=== PATIENT | female | born 1965 | race Caucasian/White ===

== ENCOUNTER 2016-06-14 15:13 | Emergency (ER) | payer MEDICAID ==
[2016-03-08 14:43] VITALS: BMI 21.9
[~2016-06-14 15:13] MED LIST: AMBIEN10 MG PO; ASPIRIN 81 MG E81 MG PO; IMDUR30 MG PO; NEURONTIN600 MG PO; NORCO 10/325 TA1 TA1 PO; NORCO 7.5/325 T1 TA1 PO; VALIUM10 MG; VALIUM10 MG OR; XANAX1 MG PO; ZOLOFT100 MG PO
== END 2016-06-14 18:35 | disposition home or self-care (01) ==
LOC: D.ER 15:13
DX: S16.1XXA Strain of muscle, fascia and tendon at neck level, initial encounter (principal); W10.9XXA Fall (on) (from) unspecified stairs and steps, initial encounter; Y93.89 Activity, other specified; Y92.019 Unspecified place in single-family (private) house as the place of occurrence of the external cause; M62.838 Other muscle spasm; F17.200 Nicotine dependence, unspecified, uncomplicated; I10 Essential (primary) hypertension; E87.6 Hypokalemia; E11.9 Type 2 diabetes mellitus without complications

== ENCOUNTER 2016-06-18 12:43 | Emergency (ER) | payer MEDICAID ==
[2016-03-08 14:43] VITALS: BMI 21.9
== END 2016-06-18 16:30 | disposition home or self-care (01) ==
LOC: D.ER 12:43
DX: M54.2 Cervicalgia (principal); I10 Essential (primary) hypertension; E87.6 Hypokalemia; W10.9XXA Fall (on) (from) unspecified stairs and steps, initial encounter; Y93.89 Activity, other specified; Y92.89 Other specified places as the place of occurrence of the external cause

== ENCOUNTER 2016-07-04 19:42 | Emergency (ER) | payer MEDICAID ==
[2016-03-08 14:43] VITALS: BMI 21.9
== END 2016-07-04 20:55 | disposition home or self-care (01) ==
LOC: D.ER 19:42
DX: S16.1XXA Strain of muscle, fascia and tendon at neck level, initial encounter (principal); W51.XXXA Accidental striking against or bumped into by another person, initial encounter; Y93.89 Activity, other specified; Y92.89 Other specified places as the place of occurrence of the external cause; M62.838 Other muscle spasm; J06.9 Acute upper respiratory infection, unspecified; I10 Essential (primary) hypertension; E87.6 Hypokalemia; F17.200 Nicotine dependence, unspecified, uncomplicated

== ENCOUNTER 2016-07-16 14:10 | Emergency (ER) | payer MEDICAID ==
[2016-03-08 14:43] VITALS: BMI 21.9
== END 2016-07-16 19:25 | disposition home or self-care (01) ==
LOC: D.ER 14:10
DX: S16.1XXA Strain of muscle, fascia and tendon at neck level, initial encounter (principal); W10.9XXA Fall (on) (from) unspecified stairs and steps, initial encounter; Y93.89 Activity, other specified; Y92.019 Unspecified place in single-family (private) house as the place of occurrence of the external cause; M62.838 Other muscle spasm; I10 Essential (primary) hypertension; E87.6 Hypokalemia

== ENCOUNTER 2016-08-05 22:20 | Emergency (ER) | payer MEDICAID ==
[2016-03-08 14:43] VITALS: BMI 21.9
== END 2016-08-05 23:05 | disposition home or self-care (01) ==
LOC: D.ER 22:20
DX: M25.562 Pain in left knee (principal); M25.561 Pain in right knee; W01.0XXA Fall on same level from slipping, tripping and stumbling without subsequent striking against object, initial encounter; Y93.89 Activity, other specified; Y92.010 Kitchen of single-family (private) house as the place of occurrence of the external cause; I10 Essential (primary) hypertension; E87.6 Hypokalemia

== ENCOUNTER 2016-09-15 16:06 | Emergency (ER) | payer MEDICAID ==
[2016-03-08 14:43] VITALS: BMI 21.9
== END 2016-09-15 19:30 | disposition left against medical advice (07) ==
LOC: D.ER 16:06
DX: R51 Headache (principal)

== ENCOUNTER 2016-09-17 14:23 | Emergency (ER) | payer MEDICAID ==
[2016-03-08 14:43] VITALS: BMI 21.9
== END 2016-09-17 15:40 | disposition home or self-care (01) ==
LOC: D.ER 14:23
DX: R51 Headache (principal); I10 Essential (primary) hypertension; I25.10 Atherosclerotic heart disease of native coronary artery without angina pectoris; E87.6 Hypokalemia; F17.200 Nicotine dependence, unspecified, uncomplicated

== ENCOUNTER 2016-09-19 15:26 | Emergency (ER) | payer MEDICAID ==
[2016-03-08 14:43] VITALS: BMI 21.9
== END 2016-09-19 18:40 | disposition home or self-care (01) ==
LOC: D.ER 15:26
DX: S80.02XA Contusion of left knee, initial encounter (principal); W19.XXXA Unspecified fall, initial encounter; Y93.89 Activity, other specified; Y92.89 Other specified places as the place of occurrence of the external cause; S80.01XA Contusion of right knee, initial encounter; I10 Essential (primary) hypertension; E87.6 Hypokalemia; F17.200 Nicotine dependence, unspecified, uncomplicated

== ENCOUNTER 2016-09-28 14:50 | Emergency (ER) | payer MEDICAID ==
[2016-03-08 14:43] VITALS: BMI 21.9
[2016-09-28 16:45] LABS: BASOPHILS 0.2 % (0-2); EOSINOPHILS 1.2 % (0-7); HEMATOCRIT 46.7 % (36.0-48.0); HEMOGLOBIN 15.4 g/dL (12-16); IMMATURE GRANULOCYTES 0.1 % (0-5); LYMPHOCYTES 23.4 % (15-50); MCH 30.3 pg (26.0-34.0); MCV 91.7 fL (80.0-100.0); MEAN PLATELET VOLUME 9.3 fL (7.4-10.4); NEUTROPHILS 70.1 % (40-80); PLATELET COUNT 242 10x3/uL (130-400); RBC 5.09 10x6/uL (4.00-5.40); RDW 13.5 % (11.5-14.5); WBC 8.4 10x3/uL (4.8-10.8)
[2016-09-28 16:59] LABS: ALBUMIN 3.1 g/dL (3.4-5.0); ALKALINE PHOSPHATASE 104 U/L (46-116); ALT (SGPT) 25 U/L (10-68); CALC OSMOLALITY 281 mosm/kg (275-300); CALCIUM 9.2 mg/dL (8.5-10.1); CARBON DIOXIDE 26.2 mmol/L (21.0-32.0); CHLORIDE - SERUM 106 mmol/L (98-107); CREATININE - SERUM 0.8 mg/dL (0.6-1.3); GLUCOSE 114 mg/dL (74-106); POTASSIUM - SERUM 4.2 mmol/L (3.5-5.1); PROTEIN - SERUM 6.6 g/dL (6.4-8.2); SODIUM 140 mmol/L (136-145); UREA NITROGEN 19 mg/dL (7-18); eGFR NON AFRICAN AMERICAN 80 mL/min (90-120)
== END 2016-09-28 18:32 | disposition home or self-care (01) ==
LOC: D.ER 14:50
PROVIDERS: Emergency Medicine
DX: R11.2 Nausea with vomiting, unspecified (principal); H81.393 Other peripheral vertigo, bilateral; I10 Essential (primary) hypertension

== ENCOUNTER 2016-10-04 19:21 | Emergency (ER) | payer MEDICAID ==
[2016-03-08 14:43] VITALS: BMI 21.9
[2016-10-04 20:28] LABS: BASOPHILS 0.3 % (0-2); EOSINOPHILS 3.1 % (0-7); HEMATOCRIT 43.1 % (36.0-48.0); IMMATURE GRANULOCYTES 0.2 % (0-5); LYMPHOCYTES 42.8 % (15-50); MCHC 32.5 g/dL (31.0-37.0); MCV 92.3 fL (80.0-100.0); MEAN PLATELET VOLUME 9.7 fL (7.4-10.4); MONOCYTES 6.2 % (2-11); NEUTROPHILS 47.4 % (40-80); PLATELET COUNT 202 10x3/uL (130-400); RBC 4.67 10x6/uL (4.00-5.40); RDW 13.6 % (11.5-14.5); WBC 5.8 10x3/uL (4.8-10.8)
[2016-10-04 20:52] LABS: ALBUMIN 2.9 g/dL (3.4-5.0); ANION GAP 12.8 mmol/L (8-16); BILIRUBIN - TOTAL 0.2 mg/dL (0.2-1.3); CALCIUM 9.1 mg/dL (8.5-10.1); CARBON DIOXIDE 24.7 mmol/L (21.0-32.0); CREATININE - SERUM 0.9 mg/dL (0.6-1.3); POTASSIUM - SERUM 4.5 mmol/L (3.5-5.1); PROTEIN - SERUM 5.9 g/dL (6.4-8.2)
== END 2016-10-04 21:24 | disposition home or self-care (01) ==
LOC: D.ER 19:21
PROVIDERS: Family Medicine
DX: H81.10 Benign paroxysmal vertigo, unspecified ear (principal); S93.402A Sprain of unspecified ligament of left ankle, initial encounter; X50.1XXA Overexertion from prolonged static or awkward postures, initial encounter

== ENCOUNTER 2016-11-04 12:53 | Emergency (ER) | payer MEDICAID ==
[2016-03-08 14:43] VITALS: BMI 21.9
== END 2016-11-04 15:14 | disposition home or self-care (01) ==
LOC: D.ER 12:53
DX: R51 Headache (principal); I10 Essential (primary) hypertension; F17.200 Nicotine dependence, unspecified, uncomplicated

== ENCOUNTER 2017-05-12 17:01 | Emergency (ER) | payer MEDICAID ==
[2016-03-08 14:43] VITALS: BMI 21.9
[2017-05-12 17:30] LABS: BASOPHILS 0.2 % (0-2); EOSINOPHILS 1.5 % (0-7); HEMATOCRIT 40.5 % (36.0-48.0); HEMOGLOBIN 13.8 g/dL (12-16); IMMATURE GRANULOCYTES 0.2 % (0-5); LYMPHOCYTES 16.9 % (15-50); MCH 30.2 pg (26.0-34.0); MCHC 34.1 g/dL (31.0-37.0); MCV 88.6 fL (80.0-100.0); MONOCYTES 5.1 % (2-11); NEUTROPHILS 76.1 % (40-80); RBC 4.57 10x6/uL (4.00-5.40); RDW 12.5 % (11.5-14.5); WBC 10.3 10x3/uL (4.8-10.8)
[2017-05-12 17:47] LABS: ALBUMIN 3.1 g/dL (3.4-5.0); ANION GAP 16.7 mmol/L (8-16); BILIRUBIN - TOTAL 0.15 mg/dL (0.2-1.3); CALCIUM 9.7 mg/dL (8.5-10.1); CREATININE - SERUM 1.2 mg/dL (0.6-1.3); POTASSIUM - SERUM 4.7 mmol/L (3.5-5.1); PROTEIN - SERUM 6.2 g/dL (6.4-8.2)
[2017-05-12 17:52] LABS: PLATELET COUNT 249 10x3/uL (130-400)
[2017-05-12 18:19] LABS: AMYLASE - SERUM 47 U/L (25-115); LIPASE 217 U/L (73-393)
== END 2017-05-12 22:55 | disposition home or self-care (01) ==
LOC: D.ER 17:01
PROVIDERS: Emergency Medicine; Nurse Practitioner Family
DX: N10 Acute pyelonephritis (principal); N23 Unspecified renal colic; N20.1 Calculus of ureter; I10 Essential (primary) hypertension; F17.200 Nicotine dependence, unspecified, uncomplicated

== ENCOUNTER 2017-05-14 14:12 | Emergency (ER) | payer MEDICAID ==
[2016-03-08 14:43] VITALS: BMI 21.9
[2017-05-14 14:46] LABS: BASOPHILS 0.1 % (0-2); EOSINOPHILS 0.8 % (0-7); HEMATOCRIT 32.7 % (36.0-48.0); HEMOGLOBIN 11.4 g/dL (12-16); IMMATURE GRANULOCYTES 0.3 % (0-5); LYMPHOCYTES 7.5 % (15-50); MCH 30.3 pg (26.0-34.0); MCHC 34.9 g/dL (31.0-37.0); MEAN PLATELET VOLUME 9.3 fL (7.4-10.4); NEUTROPHILS 86.3 % (40-80); PLATELET COUNT 113 10x3/uL (130-400); RBC 3.76 10x6/uL (4.00-5.40); RDW 13.4 % (11.5-14.5)
[2017-05-14 15:01] LABS: ANION GAP 20.7 mmol/L (8-16); BILIRUBIN - TOTAL 0.27 mg/dL (0.2-1.3); CARBON DIOXIDE 17.2 mmol/L (21.0-32.0); POTASSIUM - SERUM 4.9 mmol/L (3.5-5.1); PROTEIN - SERUM 5.8 g/dL (6.4-8.2)
[2017-05-14 15:10] LABS: ALBUMIN 2.3 g/dL (3.4-5.0); CREATININE - SERUM 7.5 mg/dL (0.6-1.3)
== END 2017-05-14 20:06 | disposition short-term general hospital (02) ==
LOC: D.ER 14:12
PROVIDERS: Nurse Practitioner Family
DX: N13.9 Obstructive and reflux uropathy, unspecified (principal); N13.30 Unspecified hydronephrosis; N39.0 Urinary tract infection, site not specified; R10.9 Unspecified abdominal pain; I10 Essential (primary) hypertension; F17.200 Nicotine dependence, unspecified, uncomplicated

== ENCOUNTER 2017-05-28 10:05 | Emergency (ER) | payer MEDICAID ==
[2016-03-08 14:43] VITALS: BMI 21.9
[2017-05-28 10:34] LABS: BASOPHILS 0.2 % (0-2); EOSINOPHILS 1.1 % (0-7); HEMATOCRIT 37.8 % (36.0-48.0); HEMOGLOBIN 12.5 g/dL (12-16); IMMATURE GRANULOCYTES 0.2 % (0-5); LYMPHOCYTES 20.2 % (15-50); MCH 29.4 pg (26.0-34.0); MCHC 33.1 g/dL (31.0-37.0); MCV 88.9 fL (80.0-100.0); MEAN PLATELET VOLUME 8.5 fL (7.4-10.4); MONOCYTES 6.8 % (2-11); NEUTROPHILS 71.5 % (40-80); PLATELET COUNT 522 10x3/uL (130-400); RBC 4.25 10x6/uL (4.00-5.40); RDW 13.2 % (11.5-14.5); WBC 9.2 10x3/uL (4.8-10.8)
[2017-05-28 10:45] LABS: APPEARANCE HAZY (CLEAR); BILIRUBIN NEGATIVE (NEGATIVE); COLOR YELLOW (YELLOW); GLUCOSE NEGATIVE (NEGATIVE); KETONE NEGATIVE (NEGATIVE); NITRITE NEGATIVE (NEGATIVE); PH 5.5 (5.0-6.0); PROTEIN TRACE mg/dL (NEGATIVE); UROBILINOGEN NORMAL (NORMAL)
[2017-05-28 10:50] LABS: BACTERIA MODERATE /hpf (NONE SEEN); EPITHELIAL CELLS OCC /hpf (0-5); RED CELLS - URINE 0-5 /hpf (0-5); WHITE CELLS - URINE 25-50 /hpf (0-5)
[2017-05-28 10:51] LABS: ALBUMIN 3.3 g/dL (3.4-5.0); ANION GAP 14.9 mmol/L (8-16); BILIRUBIN - TOTAL 0.22 mg/dL (0.2-1.3); CALCIUM 9.3 mg/dL (8.5-10.1); CARBON DIOXIDE 23.4 mmol/L (21.0-32.0); CREATININE - SERUM 0.9 mg/dL (0.6-1.3); POTASSIUM - SERUM 4.3 mmol/L (3.5-5.1); PROTEIN - SERUM 7.7 g/dL (6.4-8.2)
== END 2017-05-28 11:12 | disposition home or self-care (01) ==
LOC: D.ER 10:05
PROVIDERS: Emergency Medicine
DX: N23 Unspecified renal colic (principal); N20.1 Calculus of ureter; I10 Essential (primary) hypertension; F17.200 Nicotine dependence, unspecified, uncomplicated

== ENCOUNTER 2017-06-01 17:16 | Emergency (ER) | payer MEDICAID ==
[2016-03-08 14:43] VITALS: BMI 21.9
[2017-06-01 19:28] LABS: BASOPHILS 0.2 % (0-2); EOSINOPHILS 1.1 % (0-7); HEMATOCRIT 37.3 % (36.0-48.0); HEMOGLOBIN 12.2 g/dL (12-16); IMMATURE GRANULOCYTES 0.2 % (0-5); LYMPHOCYTES 24.9 % (15-50); MCH 29.5 pg (26.0-34.0); MCHC 32.7 g/dL (31.0-37.0); MCV 90.3 fL (80.0-100.0); MEAN PLATELET VOLUME 8.6 fL (7.4-10.4); MONOCYTES 8.1 % (2-11); NEUTROPHILS 65.5 % (40-80); RBC 4.13 10x6/uL (4.00-5.40); RDW 13.1 % (11.5-14.5); WBC 9.4 10x3/uL (4.8-10.8)
[2017-06-01 19:32] LABS: PLATELET COUNT 394 10x3/uL (130-400)
[2017-06-01 19:44] LABS: ALBUMIN 3.5 g/dL (3.4-5.0); ANION GAP 15.1 mmol/L (8-16); BILIRUBIN - TOTAL 0.17 mg/dL (0.2-1.3); CALCIUM 9.6 mg/dL (8.5-10.1); CARBON DIOXIDE 25.3 mmol/L (21.0-32.0); CREATININE - SERUM 0.9 mg/dL (0.6-1.3); POTASSIUM - SERUM 4.4 mmol/L (3.5-5.1); PROTEIN - SERUM 7.5 g/dL (6.4-8.2)
[2017-06-02 00:09] LABS: APPEARANCE HAZY (CLEAR); BILIRUBIN NEGATIVE (NEGATIVE); COLOR YELLOW (YELLOW); EPITHELIAL CELLS RARE /hpf (0-5); GLUCOSE NEGATIVE (NEGATIVE); KETONE NEGATIVE (NEGATIVE); NITRITE NEGATIVE (NEGATIVE); PROTEIN TRACE mg/dL (NEGATIVE); RED CELLS - URINE 0-5 /hpf (0-5); SPECIFIC GRAVITY 1.015 (1.005-1.020); UROBILINOGEN NORMAL (NORMAL)
[2017-06-02 00:10] LABS: BACTERIA NONE SEEN /hpf (NONE SEEN)
[2017-06-02 00:13] LABS: UDS - AMPHET NEGATIVE QUAL (NEGATIVE); UDS - BARB NEGATIVE QUAL (NEGATIVE); UDS - BENZO NEGATIVE QUAL (NEGATIVE); UDS - COCAINE NEGATIVE QUAL (NEGATIVE); UDS - OPIATE POSITIVE QUAL (NEGATIVE); UDS - PCP NEGATIVE QUAL (NEGATIVE); UDS - THC NEGATIVE QUAL (NEGATIVE)
== END 2017-06-02 01:00 | disposition home or self-care (01) ==
LOC: D.ER 17:16
PROVIDERS: Emergency Medicine; Family Medicine
DX: N39.0 Urinary tract infection, site not specified (principal); F17.200 Nicotine dependence, unspecified, uncomplicated

== ENCOUNTER 2017-06-09 12:34 | Emergency (ER) | payer MEDICAID | END 2017-06-09 18:43 | disposition home or self-care (01) | LOC: D.ER 12:34 | DX: N39.0 Urinary tract infection, site not specified (principal); N10 Acute pyelonephritis; I10 Essential (primary) hypertension ==

== ENCOUNTER 2017-06-11 10:55 | Emergency (ER) | payer MEDICAID ==
[2016-03-08 14:43] VITALS: BMI 21.9
[2017-06-11 12:00] LABS: BASOPHILS 0.3 % (0-2); EOSINOPHILS 2.7 % (0-7); HEMOGLOBIN 12.1 g/dL (12-16); IMMATURE GRANULOCYTES 0.1 % (0-5); LYMPHOCYTES 19.2 % (15-50); MCH 29.8 pg (26.0-34.0); MCHC 33.6 g/dL (31.0-37.0); MCV 88.7 fL (80.0-100.0); MONOCYTES 6.3 % (2-11); NEUTROPHILS 71.4 % (40-80); PLATELET COUNT 276 10x3/uL (130-400); RBC 4.06 10x6/uL (4.00-5.40); RDW 13.2 % (11.5-14.5)
[2017-06-11 12:17] LABS: ALBUMIN 3.4 g/dL (3.4-5.0); ANION GAP 15.8 mmol/L (8-16); BILIRUBIN - TOTAL 0.31 mg/dL (0.2-1.3); CALCIUM 8.6 mg/dL (8.5-10.1); CARBON DIOXIDE 21.4 mmol/L (21.0-32.0); CREATININE - SERUM 1.1 mg/dL (0.6-1.3); POTASSIUM - SERUM 4.2 mmol/L (3.5-5.1); PROTEIN - SERUM 6.8 g/dL (6.4-8.2)
== END 2017-06-11 15:02 | disposition home or self-care (01) ==
LOC: D.ER 10:55
PROVIDERS: Emergency Medicine
DX: J20.9 Acute bronchitis, unspecified (principal); I10 Essential (primary) hypertension

== ENCOUNTER 2017-06-19 14:06 | Emergency (ER) | payer MEDICAID ==
[2016-03-08 14:43] VITALS: BMI 21.9
[2017-06-19 15:09] LABS: APPEARANCE HAZY (CLEAR); BILIRUBIN NEGATIVE (NEGATIVE); COLOR YELLOW (YELLOW); GLUCOSE 1000 mg/dL (NEGATIVE); KETONE NEGATIVE (NEGATIVE); NITRITE NEGATIVE (NEGATIVE); PROTEIN TRACE mg/dL (NEGATIVE); SPECIFIC GRAVITY 1.015 (1.005-1.020); UROBILINOGEN NORMAL (NORMAL)
[2017-06-19 15:10] LABS: BACTERIA FEW /hpf (NONE SEEN); EPITHELIAL CELLS 0-5 /hpf (0-5); RED CELLS - URINE >50 /hpf (0-5)
== END 2017-06-19 17:44 | disposition home or self-care (01) ==
LOC: D.ER 14:06
PROVIDERS: Family Medicine
DX: N39.0 Urinary tract infection, site not specified (principal); N23 Unspecified renal colic

== ENCOUNTER 2017-08-11 10:02 | Emergency (ER) | payer MEDICAID ==
[2016-03-08 14:43] VITALS: BMI 21.9
[2017-08-11 10:33] LABS: BASOPHILS 0.1 % (0-2); EOSINOPHILS 1.8 % (0-7); HEMATOCRIT 42.6 % (36.0-48.0); HEMOGLOBIN 14.2 g/dL (12-16); IMMATURE GRANULOCYTES 0.1 % (0-5); MCH 29.2 pg (26.0-34.0); MCHC 33.3 g/dL (31.0-37.0); MCV 87.7 fL (80.0-100.0); MONOCYTES 5.6 % (2-11); NEUTROPHILS 73.4 % (40-80); PLATELET COUNT 275 10x3/uL (130-400); RBC 4.86 10x6/uL (4.00-5.40); RDW 13.2 % (11.5-14.5); WBC 6.8 10x3/uL (4.8-10.8)
[2017-08-11 10:41] LABS: APPEARANCE HAZY (CLEAR); COLOR YELLOW (YELLOW); GLUCOSE 1000 mg/dL (NEGATIVE); NITRITE NEGATIVE (NEGATIVE); PROTEIN NEGATIVE (NEGATIVE); SPECIFIC GRAVITY 1.015 (1.005-1.020)
[2017-08-11 10:42] LABS: BACTERIA MODERATE /hpf (NONE SEEN); BILIRUBIN NEGATIVE (NEGATIVE); KETONE NEGATIVE (NEGATIVE); RED CELLS - URINE 0-5 /hpf (0-5); UROBILINOGEN NORMAL (NORMAL); WHITE CELLS - URINE 25-50 /hpf (0-5)
[2017-08-11 10:51] LABS: ALBUMIN 3.5 g/dL (3.4-5.0); ANION GAP 13.8 mmol/L (8-16); BILIRUBIN - TOTAL 0.2 mg/dL (0.2-1.3); CALCIUM 9.1 mg/dL (8.5-10.1); CARBON DIOXIDE 23.7 mmol/L (21.0-32.0); CREATININE - SERUM 1.1 mg/dL (0.6-1.3); POTASSIUM - SERUM 4.5 mmol/L (3.5-5.1); PROTEIN - SERUM 7.9 g/dL (6.4-8.2)
== END 2017-08-11 12:10 | disposition home or self-care (01) ==
LOC: D.ER 10:02
PROVIDERS: Emergency Medicine
DX: N39.0 Urinary tract infection, site not specified (principal)

== ENCOUNTER 2017-12-25 11:12 | Emergency (ER) | payer MEDICAID ==
[~2017-12-25] VITALS: Ht 170.2 cm; Wt 72.7 kg
[2017-12-25 11:54] VITALS: Ht 170.2 cm; Wt 72.7 kg
[2017-12-25 12:36] LABS: BASOPHILS 0 % (0-2); EOSINOPHILS 1.4 % (0-7); HEMATOCRIT 39.7 % (36.0-48.0); HEMOGLOBIN 13.4 g/dL (12-16); IMMATURE GRANULOCYTES 0.1 % (0-5); LYMPHOCYTES 26.3 % (15-50); MCH 29.7 pg (26.0-34.0); MCHC 33.8 g/dL (31.0-37.0); MEAN PLATELET VOLUME 9.4 fL (7.4-10.4); MONOCYTES 5.3 % (2-11); NEUTROPHILS 66.9 % (40-80); RBC 4.51 10x6/uL (4.00-5.40); RDW 13.9 % (11.5-14.5); WBC 7.2 10x3/uL (4.8-10.8)
[2017-12-25 12:38] LABS: PLATELET COUNT 181 10x3/uL (130-400)
[2017-12-25 12:56] LABS: ALBUMIN 2.9 g/dL (3.4-5.0); BILIRUBIN - TOTAL 0.14 mg/dL (0.2-1.3); CALCIUM 8.5 mg/dL (8.5-10.1); CARBON DIOXIDE 25.9 mmol/L (21.0-32.0); CREATININE - SERUM 0.9 mg/dL (0.6-1.3); POTASSIUM - SERUM 3.9 mmol/L (3.5-5.1); PROTEIN - SERUM 6.1 g/dL (6.4-8.2)
[2017-12-25] MEDS ORDERED: LEVAQUIN500 MG PO (13:17)
[2017-12-25] MEDS ORDERED: PROAIR HFA8.5 GM INH (13:21)
[2017-12-25 13:40] VITALS: BP 104/73
== END 2017-12-25 13:37 | disposition home or self-care (01) ==
LOC: D.ER 11:12
PROVIDERS: Emergency Medicine
DX: J20.9 Acute bronchitis, unspecified (principal); M54.2 Cervicalgia; H91.8X1 Other specified hearing loss, right ear; E11.9 Type 2 diabetes mellitus without complications; I25.10 Atherosclerotic heart disease of native coronary artery without angina pectoris; Z90.5 Acquired absence of kidney; F17.200 Nicotine dependence, unspecified, uncomplicated

== ENCOUNTER 2018-03-24 12:54 | Emergency (ER) | payer MEDICAID ==
[~2018-03-24] VITALS: Ht 170.2 cm; Wt 77.3 kg
[~2018-03-24 12:54] MED LIST changes: +LEVAQUIN500 MG PO; +PROAIR HFA8.5 GM INH
[2018-03-24 12:58] VITALS: Ht 170.2 cm; Wt 77.3 kg
[2018-03-24] MEDS ORDERED: TORADOL10 MG PO (16:20)
[2018-03-24] MEDS ORDERED: VIBRAMYCIN 100100 MG PO (16:20)
[2018-03-24] MEDS ORDERED: VENTOLIN HFA18 GM INH (16:20)
[2018-03-24 16:53] VITALS: BP 142/78
== END 2018-03-24 16:54 | disposition home or self-care (01) ==
LOC: D.ER 12:54
DX: R50.9 Fever, unspecified (principal); S89.92XA Unspecified injury of left lower leg, initial encounter; X58.XXXA Exposure to other specified factors, initial encounter; Y93.89 Activity, other specified; Y92.89 Other specified places as the place of occurrence of the external cause; R05 Cough; J02.9 Acute pharyngitis, unspecified; R51 Headache; E11.9 Type 2 diabetes mellitus without complications; I10 Essential (primary) hypertension; I25.10 Atherosclerotic heart disease of native coronary artery without angina pectoris; F17.200 Nicotine dependence, unspecified, uncomplicated

== ENCOUNTER 2018-06-07 10:34 | Emergency (ER) | payer MEDICAID ==
[~2018-06-07] VITALS: Ht 170.2 cm; Wt 75.5 kg
[~2018-06-07 10:34] MED LIST changes: +TORADOL10 MG PO; +VENTOLIN HFA18 GM INH; +VIBRAMYCIN 100100 MG PO
[2018-06-07 10:40] VITALS: Ht 170.2 cm; Wt 75.5 kg
[2018-06-07] MEDS ORDERED: GLUCOPHAGE500 MG PO (10:42)
[2018-06-07 11:05] LABS: BASOPHILS 0.2 % (0-2); EOSINOPHILS 1.3 % (0-7); HEMATOCRIT 43.7 % (36.0-48.0); HEMOGLOBIN 15.3 g/dL (12-16); IMMATURE GRANULOCYTES 0.3 % (0-5); MCH 30.9 pg (26.0-34.0); MCV 88.3 fL (80.0-100.0); MEAN PLATELET VOLUME 9.3 fL (7.4-10.4); MONOCYTES 4.9 % (2-11); NEUTROPHILS 70.3 % (40-80); RBC 4.95 10x6/uL (4.00-5.40); RDW 12.5 % (11.5-14.5); WBC 9.9 10x3/uL (4.8-10.8)
[2018-06-07 11:19] LABS: PLATELET COUNT 272 10x3/uL (130-400)
[2018-06-07 11:24] LABS: APPEARANCE CLEAR (CLEAR); BILIRUBIN NEGATIVE (NEGATIVE); COLOR STRAW (YELLOW); GLUCOSE 1000 mg/dL (NEGATIVE); KETONE NEGATIVE (NEGATIVE); NITRITE NEGATIVE (NEGATIVE); PROTEIN NEGATIVE (NEGATIVE); UROBILINOGEN NORMAL (NORMAL)
[2018-06-07 11:26] LABS: BACTERIA FEW /hpf (NONE SEEN); EPITHELIAL CELLS 0-5 /hpf (0-5); MUCUS <1+ /lpf (NONE SEEN); RED CELLS - URINE 0-5 /hpf (0-5)
[2018-06-07 11:31] LABS: ALBUMIN 3.3 g/dL (3.4-5.0); ANION GAP 13.9 mmol/L (8-16); BILIRUBIN - TOTAL 0.27 mg/dL (0.2-1.3); CALCIUM 8.8 mg/dL (8.5-10.1); CARBON DIOXIDE 23.7 mmol/L (21.0-32.0); CREATININE - SERUM 0.9 mg/dL (0.6-1.3); POTASSIUM - SERUM 3.6 mmol/L (3.5-5.1); PROTEIN - SERUM 7.3 g/dL (6.4-8.2)
[2018-06-07 15:34] VITALS: BP 165/80
== END 2018-06-07 15:35 | disposition home or self-care (01) ==
LOC: D.ER 10:34
PROVIDERS: Family Medicine
DX: R07.81 Pleurodynia (principal); R10.32 Left lower quadrant pain; J44.9 Chronic obstructive pulmonary disease, unspecified; I25.10 Atherosclerotic heart disease of native coronary artery without angina pectoris; E11.9 Type 2 diabetes mellitus without complications; R11.2 Nausea with vomiting, unspecified; R05 Cough

== ENCOUNTER 2018-06-22 10:17 | Emergency (ER) | payer MEDICAID ==
[~2018-06-22] VITALS: Ht 170.2 cm; Wt 75.9 kg
[~2018-06-22 10:17] MED LIST changes: +GLUCOPHAGE500 MG PO
[2018-06-22 10:22] VITALS: Ht 170.2 cm; Wt 75.9 kg
[2018-06-22 11:34] LABS: BASOPHILS 0.1 % (0-2); EOSINOPHILS 0.8 % (0-7); HEMATOCRIT 43.9 % (36.0-48.0); HEMOGLOBIN 15.1 g/dL (12-16); IMMATURE GRANULOCYTES 0.1 % (0-5); LYMPHOCYTES 16.6 % (15-50); MCH 30.6 pg (26.0-34.0); MCHC 34.4 g/dL (31.0-37.0); MEAN PLATELET VOLUME 9.4 fL (7.4-10.4); MONOCYTES 4.6 % (2-11); NEUTROPHILS 77.8 % (40-80); PLATELET COUNT 239 10x3/uL (130-400); RBC 4.93 10x6/uL (4.00-5.40); RDW 12.6 % (11.5-14.5); WBC 7.9 10x3/uL (4.8-10.8)
[2018-06-22 11:38] LABS: ALBUMIN 3.3 g/dL (3.4-5.0); ALKALINE PHOSPHATASE 113 U/L (46-116); ALT (SGPT) 33 U/L (10-68); BILIRUBIN - TOTAL 0.32 mg/dL (0.2-1.3); CALC OSMOLALITY 281 mosm/kg (275-300); CALCIUM 8.6 mg/dL (8.5-10.1); CARBON DIOXIDE 20.2 mmol/L (21.0-32.0); CHLORIDE - SERUM 100 mmol/L (98-107); GLUCOSE 380 mg/dL (74-106); POTASSIUM - SERUM 4.2 mmol/L (3.5-5.1); PROTEIN - SERUM 7.1 g/dL (6.4-8.2); SODIUM 133 mmol/L (136-145); UREA NITROGEN 12 mg/dL (7-18); eGFR NON AFRICAN AMERICAN 61 mL/min (90-120)
[2018-06-22 11:56] LABS: CKMB 0.6 U/L (0.0-3.6); CREATINE KINASE 35 UL (21-215); PRO BNP 33 pg/mL (0-125); THYROID STIMULATING HORMONE 1.53 uIU/mL (0.36-3.74); TROPONIN-I < 0.017 ng/mL (0.000-0.060)
[2018-06-22 12:11] LABS: UDS - AMPHET NEGATIVE QUAL (NEGATIVE); UDS - BARB NEGATIVE QUAL (NEGATIVE); UDS - BENZO NEGATIVE QUAL (NEGATIVE); UDS - COCAINE NEGATIVE QUAL (NEGATIVE); UDS - OPIATE NEGATIVE QUAL (NEGATIVE); UDS - PCP NEGATIVE QUAL (NEGATIVE); UDS - THC NEGATIVE QUAL (NEGATIVE)
[2018-06-22 12:20] LABS: APPEARANCE CLEAR (CLEAR); COLOR YELLOW (YELLOW); NITRITE NEGATIVE (NEGATIVE); PROTEIN NEGATIVE (NEGATIVE)
[2018-06-22 12:23] LABS: BACTERIA FEW /hpf (NONE SEEN); BILIRUBIN NEGATIVE (NEGATIVE); EPITHELIAL CELLS RARE /hpf (0-5); GLUCOSE 1000 mg/dL (NEGATIVE); KETONE NEGATIVE (NEGATIVE); MUCUS <1+ /lpf (NONE SEEN); RED CELLS - URINE RARE /hpf (0-5); UROBILINOGEN NORMAL (NORMAL)
[2018-06-22 17:51] LABS: ERYTHROCYTE SEDIMENTATION RATE 12 mm/hr (0-30)
[2018-06-22] MEDS ORDERED: GLIMEPIRIDE2 MG PO (18:09)
[2018-06-22 18:34] VITALS: BP 120/74
== END 2018-06-22 18:35 | disposition home or self-care (01) ==
LOC: D.ER 10:17
PROVIDERS: Family Medicine
DX: R74.0 Nonspecific elevation of levels of transaminase and lactic acid dehydrogenase [LDH] (principal); E11.65 Type 2 diabetes mellitus with hyperglycemia; N28.9 Disorder of kidney and ureter, unspecified

== ENCOUNTER 2018-10-15 14:00 | Emergency (ER) | payer MEDICAID ==
[~2018-10-15] VITALS: Ht 170.2 cm; Wt 72.6 kg
[~2018-10-15 14:00] MED LIST changes: +GLIMEPIRIDE2 MG PO
[2018-10-15 14:10] VITALS: Ht 170.2 cm; Wt 72.6 kg
[2018-10-15 14:31] LABS: BASOPHILS 0.3 % (0-2); EOSINOPHILS 1.1 % (0-7); HEMATOCRIT 41.3 % (36.0-48.0); HEMOGLOBIN 14.8 g/dL (12-16); IMMATURE GRANULOCYTES 0.1 % (0-5); MCH 30.7 pg (26.0-34.0); MCHC 35.8 g/dL (31.0-37.0); MCV 85.7 fL (80.0-100.0); MEAN PLATELET VOLUME 9.1 fL (7.4-10.4); MONOCYTES 5.5 % (2-11); PLATELET COUNT 268 10x3/uL (130-400); RBC 4.82 10x6/uL (4.00-5.40); RDW 12.6 % (11.5-14.5); WBC 7.3 10x3/uL (4.8-10.8)
[2018-10-15 14:56] LABS: ALBUMIN 3.6 g/dL (3.4-5.0); ALKALINE PHOSPHATASE 107 U/L (46-116); ALT (SGPT) 76 U/L (10-68); BILIRUBIN - TOTAL 0.54 mg/dL (0.2-1.3); CALC OSMOLALITY 278 mosm/kg (275-300); CALCIUM 9.4 mg/dL (8.5-10.1); CARBON DIOXIDE 23.2 mmol/L (21.0-32.0); CHLORIDE - SERUM 100 mmol/L (98-107); CREATININE - SERUM 1.1 mg/dL (0.6-1.3); POTASSIUM - SERUM 4.5 mmol/L (3.5-5.1); PROTEIN - SERUM 7.4 g/dL (6.4-8.2); SODIUM 133 mmol/L (136-145); UREA NITROGEN 21 mg/dL (7-18); eGFR NON AFRICAN AMERICAN 55 mL/min (90-120)
[2018-10-15 14:57] LABS: GLUCOSE 276 mg/dL (74-106)
[2018-10-15 15:07] LABS: CKMB 1.2 U/L (0.0-3.6); CREATINE KINASE 68 UL (21-215); PRO BNP 42 pg/mL (0-125)
[2018-10-15 15:09] LABS: TROPONIN-I < 0.017 ng/mL (0.000-0.060)
[2018-10-15 15:14] LABS: INR 1.03 (0.85-1.17)
[2018-10-15] MEDS ORDERED: PREDNISONE20 MG PO (16:38)
[2018-10-15] MEDS ORDERED: VIBRAMYCIN 100100 MG PO (16:38)
[2018-10-15] MEDS ORDERED: ALBUTEROL SULF8.5 GM INH (16:38)
[2018-10-15 17:32] VITALS: BP 140/87
== END 2018-10-15 16:48 | disposition home or self-care (01) ==
LOC: D.ER 14:00
PROVIDERS: Family Medicine
DX: J44.1 Chronic obstructive pulmonary disease with (acute) exacerbation (principal); E11.9 Type 2 diabetes mellitus without complications; F17.210 Nicotine dependence, cigarettes, uncomplicated

== ENCOUNTER 2018-12-10 11:55 | Emergency (ER) | payer MEDICAID ==
[~2018-12-10] VITALS: Ht 170.2 cm; Wt 73.6 kg
[~2018-12-10 11:55] MED LIST changes: +ALBUTEROL SULF8.5 GM INH; +PREDNISONE20 MG PO
[2018-12-10 11:57] VITALS: Ht 170.2 cm; Wt 73.6 kg
[2018-12-10] MEDS ORDERED: TYLENOL W/CODEI1 TAB PO (13:27)
[2018-12-10 13:51] VITALS: BP 109/78
== END 2018-12-10 13:52 | disposition home or self-care (01) ==
LOC: D.ER 11:55
DX: S80.02XA Contusion of left knee, initial encounter (principal); W10.9XXA Fall (on) (from) unspecified stairs and steps, initial encounter; Y93.89 Activity, other specified; Y92.89 Other specified places as the place of occurrence of the external cause; R07.81 Pleurodynia

== ENCOUNTER 2019-01-10 16:27 | Observation (INO) | payer MEDICAID ==
[~2019-01-10] VITALS: Ht 170.2 cm; Wt 77.1 kg
--- NOTE | ~2019-01-10 | HEMODYNAMI ---
PATIENT:YESSENIA ARELLANO MEDICAL RECORD: [id number] : 63 LOCATION:[address] ADMISSION DATE: 01/10/19 Generatedon:01/11/201912:40 Patient name: YESSENIA ARELLANO Patient #: [id number] SSN: : 1965 Date of study: 01/11/2019 Page: Of Hemodynamic Procedure Report Patient Data Patient Demographics Procedure consent was obtained First Name: YESSENIA Gender: Female Last Name: EILEEN : 1965 [facility] Initial: Ryan Age: 53 year(s) Patient #: [id number] Race: Additional ID: [id number] Contact details Address: [facility] State: [place] City: [facility] Zip code: [address] Past Medical History Allergies Allergen Reaction Date Comments Reported Other allergy 01/11/2019 [facility] Admission Admission Data Admission Date: 01/10/2019 Admission Time: 21:35 Room #: D.2124 Height (in.): 67 BSA: 1.89 (m2) Height (cm.): 170.18 BMI: 26.63 (kg/m2) Weight (lbs.): 170 Weight (kg.): 77.11 Lab Results Lab Result Date: 01/11/2019 Lab Result Time: 0:00 Biochemistry Name Units Result Min Max BUN mg/dl 15 --(--*-)-- 7 18 Creatinine mg/dl 0.7 --(*---)-- 0.6 1.3 eGFR ml/min 90 --(*---)-- 90 120 NONAFRICAN CBC Name Units Result Min Max Hematocrit % 39.1 -*(----)-- 42 54 Hemoglobin g/dl 13.2 -*(----)-- 13.5 17.5 Procedure Procedure Types Cath Procedure Diagnostic Procedure LHC LH w/Coronaries Sedation Charges Moderate Sedation up to 15 minutes Procedure Description Procedure Date Procedure Date: 01/11/2019 Procedure Start Time: 12:05 Procedure End Time: 12:29 Procedure Staff Name Function Lew Domínguez MD Performing Physician Annalisa Zuniga RT Monitor Padmini Lucas RN Nurse Natalie Mai RT Scrub Procedure Data Cath Procedure Fluoroscopy Diagnostic fluoroscopy Total fluoroscopy Time: 2.9 time: 2.9 min min Diagnostic fluoroscopy Total fluoroscopy dose: 347 dose: 347 mGy mGy Contrast Material Contrast Material Type Amount (ml) Isovue 300 102 Entry Location Entry Primary Successful Side Size Upsize Upsize Entry Closure Succes sful Closure Location (Fr) 1 (Fr) 2 (Fr) Remarks Device Remarks Femoral Left 5 Fr Exoseal artery Estimated blood loss: 5 ml Diagnostic catheters Device Type Used For End Catheter Placement MULTIPACK JL 4.0 5Fr Procedure catheter MULTIPACK 3DRC 5Fr Procedure catheter MULTIPACK Pigtail 5 Fr Procedure catheter Procedure Complications No complications Procedure Medications Medication Administration Route Dosage 0.9% NaCl I.V. 100 ml/hr Oxygen etCO2 Nasal cannula 2 l/min Lidocaine 2% added to field 20 Heparin Flush Bag added to field 2 bags (1000units/500ml NS) Phenergan I.V. 25 mg Versed I.V. 2 mg Fentanyl I.V. 100 mcg Versed I.V. 2 mg Fentanyl I.V. 50 mcg Hemodynamics Rest BSA: 1.89 (m2) HGB: 13.2 (g/dl) O2 Consumption: Estimated: 184.71 (ml/min) O2 Co nsumption indexed: Estimated:97.73 (ml/min/m) Heart Rate: 73 (bpm) Pressure Samples Time Site Value (mmHg) Purpose Heart Use Rate(bpm) 12:22 LV 88/-11,-7 Snapshot 73 12:22 LV 96/-2,0 Pullback 76 12:22 AO 98/55(75) Pullback 76 Gradients Valve Time Site 1 Site 2 Mean SEP/DFP Peak To Heart Use (mmHg) (sec/min) Peak Rate (mmHg) (bpm) Aortic 12:22 LV AO 0 7 0 76 96/-2,0 98/55(75) Calculations Valve P-P Mean Valve Index Valve Source Name Gradient Area Flow (cm2) Aortic 0 0 0 0 Snapshots Pre Cath Intra NCS Post Cath Vital Signs Time Heart Resp SPO2 etCO2 NIBP (mmHg) Rhythm Pain Sedation Rate (ipm) (%) (mmHg) Status Level (bpm) 11:50:44 67 16 99 33.1 137/80(118) NSR 0 (11) 10(A) , No pain 11:54:58 71 11 97 32.3 120/75(107) NSR 0 (11) 10(A) , No pain 11:59:12 71 13 97 37.6 119/74(99) NSR 0 (11) 10(A) , No pain 12:03:26 70 14 98 36.8 114/71(95) NSR 0 (11) 10(A) , No pain 12:07:38 72 16 98 30.1 117/76(101) NSR 0 (11) 10(A) , No pain 12:11:50 71 15 97 36.8 130/76(104) NSR 0 (11) 10(A) , No pain 12:15:58 74 15 98 38.4 125/86(101) NSR 0 (11) 10(A) , No pain 12:20:10 75 16 98 36.1 119/78(101) NSR 0 (11) 10(A) , No pain 12:24:20 76 15 99 36.8 116/77(100) NSR 0 (11) 10(A) , No pain 12:28:25 75 9 96 33.1 120/85(100) NSR 0 (11) 10(A) , No pain Medications Time Medication Route Dose Verified Delivered Reason Notes Eff ectiveness by by 11:51:00 0.9% NaCl I.V. 100 Lew Padmini used for ml/hr [place] Lance procedure MD VU 11:51:05 Oxygen etCO2 2 Lew Padmini used for Nasal l/min [place] Lance procedure cannula MD VU 11:51:21 Lidocaine 2% added 20ml Lew Hackett for local to vial [facility] anesthetic field MD GARY 11:51:25 Heparin Flush added 2 Lew Lew used for [facility] ([facility]/500ml field MD GARY NS) 11:53:37 Phenergan I.V. 25 mg Lew Padmini for nausea St Cristhian Lucas MD, RN 12:02:08 Versed I.V. 2 mg Lew Padmini for CatrachitaCristhian Lucas sedation MD VU 12:02:17 Fentanyl I.V. 100 Lew y[address] [facility] Cristhian Lucas sedation MD VU 12:11:14 Versed I.V. 2 mg Lew Bermeo sedation MD VU 12:11:18 Fentanyl I.V. 50 Lew ying [facility] St Cristhian Lucas sedation MD VUshowroom sales assistant Log Time Note 11:15:54 Informed consent obtained and on chart 11:16:21 Procedure Status Urgent Heart Cath (IP). 11:16:22 Time tracking: Regular hours (M-F 7:00 - 5:00) 11:16:25 Plan of Care:Hemodynamics will remain stable., Cardiac rhythm will remain stable., Comfort level will be maintained., Respiratory function will remain adequate., Patient/ family verbilizes understanding of procedure., Procedure tolerated without complication., Recovers from procedure without complications.. 11:17:47 Lab Result : Hemoglobin 13.2 g/dl 11:17:47 Lab Result : Hematocrit 39.1 % 11:17:47 Lab Result : eGFR NONAFRICAN 90 ml/min 11:17:47 Lab Result : BUN 15 mg/dl 11:17:47 Lab Result : Creatinine 0.7 mg/dl 11:18:01 Patient Weight : 170 lbs 11:18:04 Patient Height : 67 inches 11:33:25 Padmini Lucas RN sent for patient. Start room use. 11:41:22 Patient received from Med II to CCL 1 Alert and oriented. Tansferred to table in Supine position. 11:41:25 Correct patient and procedure confirmed by team. 11:41:25 Warm blankets applied, and dio hugger turned on for patient comfort. 11:41:26 ECG and BP/O2 sat monitors applied to patient. 11:46:38 Rhythm: sinus rhythm 11:46:39 Pre-procedure instructions explained to patient. 11:46:39 Full Disclosure recording started 11:46:40 Pre-op teaching completed and patient verbalized understanding. 11:46:41 Family unavailable. 11:46:42 Patient NPO since Midnight. 11:46:54 Patient allergic to Other allergyORANGES 11:46:59 Is patient on blood thinner?No 11:47:01 Patient diabetic? Yes. 11:47:03 If diabetic: On Metformin? Yes 11:47:05 If on Metformin: Last Dose? 01/10/2019 11:47:08 Snore? Yes 11:47:14 Previous problem with sedation/anesthesia? Yes NAUSEA AND VOMITING 11:47:16 Sleep apnea? No 11:47:17 Opens mouth fully? Yes 11:47:17 Deviated septum? No 11:47:18 Sticks out tongue? Yes 11:47:21 Airway obstruction? Yes COPD\ 11:47:25 Dentures? Yes IN TIGHT 11:47:30 Pre procedure: right dorsailis pedis pulse 1+ Palpable, but thready & weak; easily obliterated 11:47:32 Patient pain scale 0/10 ?. 11:47:40 IV patent on arrival in left antecubital with 0.9% NaCl at [facility]. 11:47:42 Lab results completed and on chart. 11:47:45 Alarms reviewed by R. N. 11:47:45 Right groin area was prepped with chlora-prep and draped in sterile fashion 11:47:46 Sharps counted by scrub and verified by R.N. 11:47:48 Use device set Femoral Dx 11:47:50 Bag Decanter (2002S) opened to sterile field. 11:47:50 ACIST Syringe (84151) opened to sterile field. 11:47:51 ACIST Hand Control (36416) opened to sterile field. 11:47:52 ACIST Manifold (93761) opened to sterile field. 11:47:53 Medline Cath Pack ([id number]) opened to sterile field. 11:47:53 Tegaderm 4 x 4 (1626W) opened to sterile field. 11:47:54 DIAGNOSTIC Multipack 5Fr catheter set (BB0546) opened to sterile field. 11:47:55 EMERALD Guide Wire (086-135) opened to sterile field. 11:47:55 SHEATH 5FR Criders (NEJ569) opened to sterile field. 11:49:38 Vital chart was started 11:51:00 0.9% NaCl 100 ml/hr I.V. was administered by Padmini Lucas RN; used for procedure; 11:51:05 Oxygen 2 l/min etCO2 Nasal cannula was administered by Padmini Lucas RN; used for procedure; 11:51:21 Lidocaine 2% 20ml vial added to field was administered by Lew Domínguez MD; for local anesthetic; 11:51:25 Heparin Flush Bag (1000units/500ml NS) 2 bags added to field was administered by Lew Domínguez MD; used for procedure; 11:53:37 Phenergan 25 mg I.V. was administered by Padmini Lucas RN; for nausea; 12:00:57 --------ALL STOP TIME OUT------ 12:00:59 Final Timeout: patient, procedure, and site verified with staff and physician. All members of the team are in agreement. 12:01:00 Right groin site verified by team. 12:01:03 Fire Safety Assessment: A--An alcohol-based skin anteseptic being used preoperatively., C--Open oxygen or nitrous oxide is being used., D--An ESU, laser, or fiber-optic light is being used. 12:01:06 Physical assessment completed. ASA score P 2 - A patient with mild systemic disease as per Lew Domínguez MD. 12:01:09 1) 90+ Normal kidney functon but urine findings or structural abnormalities or genetic trait point to kidney disease. 12:01:16 Maximum allowable contrast dose (3.7 X eGFR X 0.75)250 ml. 12:01:20 Sedation plan: IV Moderate Sedation Medication:Versed, Fentanyl 12:02:08 Versed 2 mg I.V. was administered by Padmini Lucas RN; for sedation; 12:02:17 Fentanyl 100 mcg I.V. was administered by Padmini Lucas RN; for sedation; 12:05:13 Procedure started. 12:05:15 Zero performed for pressure channel P1 12:05:56 Local anesthetic to right femoral artery with Lidocaine 2% by Lew Domínguez MD.INITIAL ACCESS ONLY 12:08:57 GLIDE WIRE ANGLE 260cm ([id number]) opened to sterile field. 12:09:28 MAGIC TORQUE 180cm 0.035 wire ([id number]) opened to sterile field. 12:11:14 Versed 2 mg I.V. was administered by Padmini Lucas RN; for sedation; 12:11:18 Fentanyl 50 mcg I.V. was administered by Padmini Lucas RN; for sedation; 12:16:08 UNABLE TO CANNULATE RIGHT GROIN. WILL PROCEED TO LEFT 12:16:11 Zero performed for pressure channel P1 12:16:30 Local anesthetic to left femerol artery with Lidocaine 2% by Lew Domínguez MD.ADDITIONAL ACCESS 12:16:37 Zero performed for pressure channel P1 12:18:08 A 5 Fr sheath was inserted into the Left Femoral artery 12:18:16 A MULTIPACK JL 4.0 5Fr catheter was advanced over the wire and used for Procedure. 12:19:51 LCA angiography performed. 12:20:10 Catheter removed. 12:20:16 A MULTIPACK 3DRC 5Fr catheter was advanced over the wire and used for Procedure. 12:21:12 RCA angiography performed. 12:21:13 Catheter removed. 12::27 A MULTIPACK Pigtail 5 Fr catheter was advanced over the wire and used for Procedure. 12::54 LV gram done using MADISON 12::02 Injector settings: Ml/sec: 10, Volume: 20, 12:22:29 LV hemodynamics recorded. 12::42 EF : 55 % 12:23:02 Right leg runoff performed. 12:25:35 EXOSEAL 5Fr (EX500) opened to sterile field. 12::54 Sheath removed intact; hemostasis achieved with Exoseal to the Left Femoral artery. 12:25:56 Procedure ended.(Physican Out) 12:26:05 Fluoroscopy time 02.90 minutes. 12::18 Fluoroscopy dose: 347 mGy 12:26:18 Flurop Dose total: 347 12::23 Dose Area Product 33512 mGy/cm. 12:26:26 Contrast amount:Isovue 300 102ml. 12::29 Sharps counted by scrub and verified by R.N. 12::29 Maximum allowable dose exceeded? No. 12:26:33 Post-op/insertion site Left Femoral artery dressed using a 4 x 4 and Tegaderm. 12::37 Post-procedure physical assessment completed. ASA score P 2 - A patient with mild systemic disease as per Lew Domínguez MD. 12::41 Post procedure rhythm: sinus rhythm 12::43 Estimated blood loss: 5 ml 12::45 Patient needs reinforcement of post procedure teaching. 12::45 Post procedure instruction explained to patient.Patient verbalizes understanding. 12:26:59 Procedure type changed to Cath procedure, Diagnostic procedure, LHC, LHC w/Coronaries, Sedation Charges, Moderate Sedation up to 15 minutes 12:29:34 Procedure and supply charges have been captured, reviewed, submitted and are correct. 12:29:37 Procedure Complication : No complications 12:29:39 See physician's report for complete and final results. 12:29:39 Vital chart was stopped 12:29:40 Report given to [facility]. 12:29:43 Patient transfered to [facility] with Bed. 12:29:45 Full Disclosure recording stopped 12:29:45 Procedure ended. 12:29:49 End room use (Document Last) 12:34:56 End room use (Document Last) 12:35:14 End room use (Document Last) Device Usage Item Name Manufacture Quantity Catalog Hospital Part Current Minimal Lot# / Number Charge Number Stock Stock Serial# Code ACIST Acist 1 97983 411303 664512 710577 20 Syringe Medical (13374) Systems Inc Bag Decanter Microtek 1 2001S 236971 73386 021667 5 (2001S) Medical Inc. ACIST Hand Acist 1 99040 657604 929302 986444 5 Control Medical (07076) Systems Inc ACIST Acist 1 16052 880122 842255 281623 5 Manifold Medical (01475) Systems Inc Tegaderm 4 x 3M 1 1626W 032493 526041 963825 5 4 (1626W) Medline Cath Medline 1 [id number] 042851 86388 276516 5 Pack ([id number]) DIAGNOSTIC Cardinal 1 DT1546 995969 47021 439389 30 Multipack Health 5Fr catheter set (HO5451) SHEATH 5FR Terumo 1 TAG191 491862 076395 310596 5 Criders (ZEH149) EMERALD Cardinal 1 502-455 882092 432927 556673 5 Guide Wire Health (502-455) GLIDE WIRE Terumo 1 AS6232 913197 173159 068929 5 ANGLE 260cm (HA7098) MAGIC TORQUE [place] 1 [id number] 190087 711185 125559 1 180cm 0.035 Scientific wire ([id number]) MULTIPACK JL Cardinal 1 257340 5 4.0 5Fr Health catheter MULTIPACK Cardinal 1 451381 5 3DRC 5Fr Health catheter MULTIPACK Cardinal 1 844023 5 Pigtail 5 Fr Health catheter EXOSEAL 5Fr Cardinal 1 EX500 975886 033090 632848 10 (EX500) Health Signature Audit [place] Stage Time Signature Unsigned Intra-Procedure 01/11/2019 Annalisa Zuniga 12:34:56 PM RT(R) Intra-Procedure 01/11/2019 Padmini Lucas 12:35:14 PM RN Intra-Procedure 01/11/2019 Lew Polanco 12:40:13 PM Cristhian GARY [facility] [address] [id number]
[~2019-01-10 16:27] MED LIST changes: +TYLENOL W/CODEI1 TAB PO
[2019-01-10] MEDS ORDERED: GLUCOPHAGE500 MG PO (16:49)
[2019-01-10] MEDS ORDERED: ALBUTEROL SULF8.5 GM (16:50)
--- NOTE | 2019-01-10 16:52 | NUR ---
PT REPORTS CHEST PAIN 5/10 AFTER TAKING 3RD NITROGLYCERIN. 140/86 BP, 91 HR, 98% SPO2 ROOM AIR, 14 RESPIRATIONS/MIN.
[2019-01-10 17:01] LABS: BASOPHILS 0.1 % (0-2); EOSINOPHILS 1.5 % (0-7); HEMATOCRIT 39.7 % (36.0-48.0); HEMOGLOBIN 13.9 g/dL (12-16); IMMATURE GRANULOCYTES 0.3 % (0-5); LYMPHOCYTES 22.1 % (15-50); MCH 30.5 pg (26.0-34.0); MCV 87.3 fL (80.0-100.0); MONOCYTES 4.6 % (2-11); NEUTROPHILS 71.4 % (40-80); PLATELET COUNT 233 10x3/uL (130-400); RBC 4.55 10x6/uL (4.00-5.40); RDW 12.5 % (11.5-14.5); WBC 7.4 10x3/uL (4.8-10.8)
[2019-01-10 17:09] LABS: INR 0.91 (0.85-1.17); PROTIME 11.8 SECONDS (11.6-15.0)
[2019-01-10 17:28] LABS: ALBUMIN 2.9 g/dL (3.4-5.0); ALKALINE PHOSPHATASE 101 U/L (46-116); ALT (SGPT) 35 U/L (10-68); CALCIUM 8.2 mg/dL (8.5-10.1); CARBON DIOXIDE 22.3 mmol/L (21.0-32.0); CHLORIDE - SERUM 102 mmol/L (98-107); CREATINE KINASE 34 UL (21-215); CREATININE - SERUM 0.9 mg/dL (0.6-1.3); MAGNESIUM - SERUM 1.6 mg/dL (1.8-2.4); POTASSIUM - SERUM 3.8 mmol/L (3.5-5.1); PROTEIN - SERUM 6.2 g/dL (6.4-8.2); SODIUM 136 mmol/L (136-145); UREA NITROGEN 11 mg/dL (7-18); eGFR NON AFRICAN AMERICAN 69 mL/min (90-120)
[2019-01-10 17:29] LABS: APPEARANCE CLEAR (CLEAR); BILIRUBIN NEGATIVE (NEGATIVE); COLOR STRAW (YELLOW); GLUCOSE 1000 mg/dL (NEGATIVE); KETONE NEGATIVE (NEGATIVE); NITRITE NEGATIVE (NEGATIVE); PROTEIN NEGATIVE (NEGATIVE); UROBILINOGEN NORMAL (NORMAL)
[2019-01-10 17:42] LABS: CALC OSMOLALITY 290 mosm/kg (275-300); TROPONIN-I < 0.017 ng/mL (0.000-0.060)
[2019-01-10 17:43] LABS: GLUCOSE 465 mg/dL (74-106)
[2019-01-10 17:59] LABS: CKMB 0.9 U/L (0.0-3.6)
[2019-01-10 19:01] LABS: UDS - AMPHET NEGATIVE QUAL (NEGATIVE); UDS - BARB NEGATIVE QUAL (NEGATIVE); UDS - BENZO NEGATIVE QUAL (NEGATIVE); UDS - COCAINE NEGATIVE QUAL (NEGATIVE); UDS - OPIATE NEGATIVE QUAL (NEGATIVE); UDS - PCP NEGATIVE QUAL (NEGATIVE); UDS - THC NEGATIVE QUAL (NEGATIVE)
--- NOTE | 2019-01-10 19:24 | NUR ---
FSBS 271.
--- NOTE | 2019-01-10 22:47 | NUR ---
RECIEVED TO ROOM 2123 FROM ER VIA . PT A&O. RESPERATIONS EVEN ON RA. VITALS STABLE. PLACED ON TELEMETRY, 80 SR PER MT. HISTORY AND MED REC OBTAINED. PT CURRENTLY DENIES PAIN OR NEEDS, BED LOW, CL IN REACH.
--- NOTE | 2019-01-10 23:10 | NUR ---
SANDWHICH TRAY AND DRINK GIVEN.
--- NOTE | 2019-01-11 00:23 | NUR ---
BS 288, COVERED PER S/S. ASA 325 GIVEN WITH SIP OF WATER. REMINDED PT NOTHING ELSE TO EAT OR DRINK UNTIL SEEN BY SAW HANDLE ASSEMBLER.
[2019-01-11 02:03] VITALS: BP 153/85; BMI 26.7
--- NOTE | 2019-01-11 02:06 | NUR ---
RESTING WITH EYES CLOSED, RESPERATIONS EVEN, NO S/S DISTRESS NOTED.
[2019-01-11 04:00] VITALS: BP 142/77
[2019-01-11 06:42] LABS: BASOPHILS 0.1 % (0-2); EOSINOPHILS 1.9 % (0-7); HEMATOCRIT 39.1 % (36.0-48.0); HEMOGLOBIN 13.2 g/dL (12-16); IMMATURE GRANULOCYTES 0.1 % (0-5); LYMPHOCYTES 30.8 % (15-50); MCH 29.7 pg (26.0-34.0); MCHC 33.8 g/dL (31.0-37.0); MCV 87.9 fL (80.0-100.0); MEAN PLATELET VOLUME 9.2 fL (7.4-10.4); MONOCYTES 6.3 % (2-11); NEUTROPHILS 60.8 % (40-80); PLATELET COUNT 230 10x3/uL (130-400); RBC 4.45 10x6/uL (4.00-5.40); RDW 12.7 % (11.5-14.5); WBC 8.6 10x3/uL (4.8-10.8)
[2019-01-11 07:14] LABS: CALCIUM 8.5 mg/dL (8.5-10.1); CARBON DIOXIDE 25.9 mmol/L (21.0-32.0); CHLORIDE - SERUM 109 mmol/L (98-107); CKMB 1.1 U/L (0.0-3.6); CREATINE KINASE 28 UL (21-215); CREATININE - SERUM 0.7 mg/dL (0.6-1.3); MAGNESIUM - SERUM 1.9 mg/dL (1.8-2.4); PHOSPHOROUS 4.3 mg/dL (2.5-4.9); POTASSIUM - SERUM 4.3 mmol/L (3.5-5.1); SODIUM 143 mmol/L (136-145); eGFR NON AFRICAN AMERICAN > 90 mL/min (90-120)
[2019-01-11 07:18] LABS: CALC OSMOLALITY 292 mosm/kg (275-300); GLUCOSE 222 mg/dL (74-106); TROPONIN-I < 0.017 ng/mL (0.000-0.060); UREA NITROGEN 15 mg/dL (7-18)
--- NOTE | 2019-01-11 07:25 | NUR ---
ASSESSMENT DONE. DENIES NEEDS
[2019-01-11 08:16] VITALS: BP 130/81
--- NOTE | 2019-01-11 10:21 | NUR ---
I have reviewed this patient and I concur with the Shift Assessment completed by the Licensed Practical Nurse today this shift.
--- NOTE | 2019-01-11 11:45 | NUR ---
TO HOUSECLEANER FLOOR PER BED
[2019-01-11 11:49] VITALS: Ht 170.2 cm; Wt 77.1 kg
[2019-01-11] MEDS ORDERED: LOPRESSOR25 MG PO (13:53)
--- NOTE | 2019-01-11 16:14 | NUR ---
DC GIVEN TO PT WITH RX FOR ACCU-CHECK
[2019-01-11 16:22] VITALS: BP 135/80
--- NOTE | 2019-01-11 16:28 | MORECARE ---
CASE MANAGEMENT DISCHARGE SUMMARY PATIENT: YESSENIA ARELLANO UNIT: [id number] ADM DATE: 01/10/19 AGE: 53 : 63 SEX: F ROOM/BED: D.9624 AUTHOR: TONIE MCKEON PHYSICIAN: REFERRING PHYSICIAN: GARY OJEDA MD DATE OF SERVICE: 01/11/19 Discharge Plan Patient Name: YESSENIA ARELLANO [facility] [facility] 1965 Planned Disposition: Home Anticipated Discharge Date: 01/11/19 Discharge Date: Expected LOS: 1 Initial Reviewer: [email or web address] Initial Review Date: 01/10/2019 Generated: 01/11/19 5:28 pm Patient Name: YESSENIA ARELLANO Page 58288 at 1628 All edits/amendments must be made on the electronic document DICTATION DATE: 01/11/191627 CASER UP: SHARON 01/11/191627 RPT#: [id number] DC DATE: STATUS: ADM IN [facility] [address] [place] [address] END OF REPORT
--- NOTE | 2019-01-11 16:37 | MORECARE ---
CASE MANAGEMENT DISCHARGE SUMMARY PATIENT: YESSENIA ARELLANO UNIT: [id number] ADM DATE: 01/10/19 AGE: 53 : 63 SEX: F ROOM/BED: D.9778 AUTHOR: MIKE,DOC PHYSICIAN: REFERRING PHYSICIAN: GARY OJEDA MD DATE OF SERVICE: 01/11/19 Discharge Plan Patient Name: YESSENIA RAELLANO Facility: [facility]:[place] : 1965 Planned Disposition: Home Anticipated Discharge Date: 01/11/19 Discharge Date: Expected LOS: 1 Initial Reviewer: [email or web address] Initial Review Date: 01/10/2019 Generated: 01/11/19 5:37 pm Comments DCP- Discharge Planning Updated by [email or web address]: Rubén Lynch on 01/11/19 3:[address] Patient Name: YESSENIA ARELLANO Admission Status: ER Accout number: [id number] Admission Date: 01-10-2019 : 1965 Admission Diagnosis: Attending: LISA OJEDA Current LOS: 1 Anticipated DC Date: 01-11-2019 Planned Disposition: Home Primary Insurance: [place] PRIVATE OPTIONS JUDAH Discharge Planning Comments: CM RECEIVED ORDER THAT PT CANNOT GET GLUCOMETER TESTING STRIPS. CM MET WITH PT IN ROOM TO DISCUSS DISCHARGE PLANNING AND NEEDS. PT REPORTS LIVING AT HOME INDEPENDENTLY WITH HER TEEN GRANDCHILDREN. PT HAS A ONE TOUCH GLUCOMETER WITH ONE STRIP LEFT. PT HAS NO MEDICAL EQUIPMENT PROVIDER AND NO OUTSIDE SERVICES ASSISTING IN THE HOME. CM DISCUSSED AVAILABILITY OF HOME HEALTH, REHAB SERVICES AND MEDICAL EQUIPMENT. PT DENIES DISCHARGE NEEDS, REPORTS HER FRIEND WILL PICK HER UP FOR DISCHARGE HOME.PT STATES HER INSURANCE WILL NOT PAY FOR TEST STRIPS AND SHE DOES NOT KNOW WHY. CM CALLED PT'S PLANT ENGINEER, JAMES CASTRO, , [place]T [phone]. JAMES ADVISED THAT INSURANCE SWITCHED TO THE ACCUCHECK MONITOR AND STRIPS. JAMES FAXED VOUCHER FOR FREE MONITOR AND 30 TESTING STRIPS. CM OBTAINED PRESCRIPTION FOR MONITOR AND 30 DAY SUPPLY OF STRIPS. CM PROVIDED TO [employer] ASSISTANT MANAGER TO PROVIDE TO PT FOR DISCHARGE HOME TODAY. Customs House Broker: Rubén Lynch DCPIA - Discharge Planning Initial Assessment Updated by [email or web address]: Rubén Lynch on 01/11/19 4:29 pm * Is the patient Alert and Oriented? Yes * How many steps to enter\exit or inside your home? 0-O / 13-I * PCP DR. FARLEY IN [place] * [facility] * Preadmission Environment Home with Family * ADLs Independent * Equipment Glucometer * Other Equipment NO MEDICAL EQUIPMENT PROVIDER PREFERENCE * List name and contact numbers for known caregivers / representatives who currently or will assist patient after discharge: JEMIMA BAILEY, FRIEND, * Verbal permission to speak to the caregivers and representatives has been obtained from the patient. N/A * Community resources currently utilized None * Please name any agencies selected above. NONE * Additional services required to return to the preadmission environment? No * Can the patient safely return to the preadmission environment? Yes * Has this patient been hospitalized within the prior 30 days at any hospital? No Last DP export: 01/11/19 3:28 p Patient Name: YESSENIA ARELLANO Page 23586 at 1637 All edits/amendments must be made on the electronic document DICTATION DATE: 01/11/19 1637 LEARNING ENGINEER: SHARON 01/11/19 1637 RPT#: [id number] DC DATE: STATUS: [facility]M [facility] [address] [place] [address] END OF REPORT
--- NOTE | 2019-01-15 13:08 | OP ---
PATIENT NAME: YESSENIA ARELLANO MEDICAL RECORD: [id number] :63 LOCATION:D.M2 D.2124 ADMISSION DATE:01/10/19 SURGEON: SPEEDY EGAN MD DATE OF OPERATION: 01/11/2019 PROCEDURES: Left heart catheterization, selective coronary angiography with unilateral runoff with left femoral artery approach. CATHETERS: A 5-Mongolian sheath, 5/4 left and right Dorinda. Procedure was well tolerated. The patient returned to the ross, sheath removed. FINDINGS: Left ventriculography in 30-degree MADISON view: Normal wall motion and normal systolic function. CORONARY ANATOMY: LEFT MAIN: Left main is free of disease. LAD: Area of previous stenting is widely patent. No progression of eklutna disease. No evidence of re-stenosis. CIRCUMFLEX: Free of disease. RIGHT CORONARY ARTERY: Has mild wall disease but no significant stenosis. At the end of the left heart catheterization with the pigtail catheter was withdrawn to the level of the renal arteries with unilateral runoff to the right secondary to inability to access. FINDINGS: Nonselective angiography of both renal arteries showed no evidence of focal stenosis. The abdominal aorta itself shows no evidence of aneurysm, dissection or significant atherosclerotic debris and the right iliac system, right internal and external common iliac small vessel free of disease. Femoral system including deep superficial and common free of disease. Good 3-vessel runoff. IMPRESSION: No significant abnormalities with the outflow with the right unilateral runoff. TRANSINT:[id number] Voice Confirmation ID: [id number] DOCUMENT ID: [id number] SPEEDY EGAN MD at 1308 CC: [id number] DICTATION DATE: 01/11/19 1231 MELTER HELPER: 01/11/19 2258 DIS IN 01/11/19 [facility] [address] [id number]
== END 2019-01-11 16:56 | disposition home or self-care (01) ==
LOC: D.ER 16:27 → D.M2 21:35 → OBSVTIME 21:35 → D.M2 21:35
PROVIDERS: Emergency Medicine; Family Medicine; ADMIT Emergency Medicine; ATTEND Emergency Medicine
DX: I25.119 Atherosclerotic heart disease of native coronary artery with unspecified angina pectoris (principal); F17.203 Nicotine dependence unspecified, with withdrawal; I10 Essential (primary) hypertension; J44.9 Chronic obstructive pulmonary disease, unspecified; E83.42 Hypomagnesemia; E11.9 Type 2 diabetes mellitus without complications; Z90.5 Acquired absence of kidney

== ENCOUNTER 2019-01-16 15:45 | Inpatient (IN) | payer MEDICAID ==
[~2019-01-16] VITALS: Ht 170.2 cm; Wt 72.6 kg
[~2019-01-16 15:45] MED LIST changes: +ALBUTEROL SULF8.5 GM; +LOPRESSOR25 MG PO
--- NOTE | 2019-01-16 16:35 | NUR ---
URINE SPEC OBTAINED, LABELED AT BS AND SENT TO LAB
[2019-01-16 16:36] LABS: BASOPHILS 0.2 % (0-2); EOSINOPHILS 1.3 % (0-7); HEMOGLOBIN 13.9 g/dL (12-16); IMMATURE GRANULOCYTES 0.1 % (0-5); LYMPHOCYTES 20.6 % (15-50); MCH 30.5 pg (26.0-34.0); MCHC 34.8 g/dL (31.0-37.0); MCV 87.9 fL (80.0-100.0); MEAN PLATELET VOLUME 9.7 fL (7.4-10.4); MONOCYTES 8.9 % (2-11); NEUTROPHILS 68.9 % (40-80); RBC 4.55 10x6/uL (4.00-5.40); RDW 12.9 % (11.5-14.5); WBC 8.8 10x3/uL (4.8-10.8)
[2019-01-16 16:38] LABS: APPEARANCE CLEAR (CLEAR); BILIRUBIN NEGATIVE (NEGATIVE); COLOR YELLOW (YELLOW); GLUCOSE 1000 mg/dL (NEGATIVE); KETONE NEGATIVE (NEGATIVE); NITRITE NEGATIVE (NEGATIVE); PROTEIN NEGATIVE (NEGATIVE); UROBILINOGEN NORMAL (NORMAL)
[2019-01-16 16:38] LABS: PLATELET COUNT 291 10x3/uL (130-400)
[2019-01-16 16:41] VITALS: BP 130/78
--- NOTE | 2019-01-16 16:52 | NUR ---
INFORMED ALEK WEST OF CONTINUED ELEVATED BP
[2019-01-16 16:55] LABS: ALBUMIN 3.4 g/dL (3.4-5.0); ALKALINE PHOSPHATASE 91 U/L (46-116); ALT (SGPT) 32 U/L (10-68); CALC OSMOLALITY 285 mosm/kg (275-300); CALCIUM 8.9 mg/dL (8.5-10.1); CARBON DIOXIDE 25.9 mmol/L (21.0-32.0); CHLORIDE - SERUM 98 mmol/L (98-107); CREATININE - SERUM 0.8 mg/dL (0.6-1.3); POTASSIUM - SERUM 5.4 mmol/L (3.5-5.1); PROTEIN - SERUM 7.5 g/dL (6.4-8.2); SODIUM 134 mmol/L (136-145); UREA NITROGEN 17 mg/dL (7-18); eGFR NON AFRICAN AMERICAN 79 mL/min (90-120)
[2019-01-16 16:56] VITALS: BP 178/114
[2019-01-16 17:00] LABS: GLUCOSE 389 mg/dL (74-106)
[2019-01-16 17:01] LABS: AMYLASE - SERUM 44 U/L (25-115); LIPASE 352 U/L (73-393); TROPONIN-I < 0.017 ng/mL (0.000-0.060)
--- NOTE | 2019-01-16 18:02 | NUR ---
TO CT VIA STRETCHER WITH FIBER LOCKING SUPERVISOR
[2019-01-16 18:30] VITALS: BP 126/81
--- NOTE | 2019-01-16 19:17 | NUR ---
BS REPORT TO HORACE HO
--- NOTE | 2019-01-16 22:00 | NUR ---
PATIENT TRANSFERED FROM THE ER. VITAL SIGN ARE STABLE. PATIENT DENIES ANY PAIN OR CONCERNS AT THIS TIME. BED IN THE LOWEST POSITON AND CALL LIGHT WITH IN REACH.
[2019-01-16 22:30] VITALS: BP 112/68
[2019-01-17 03:57] VITALS: BP 112/68; BMI 25.1
[2019-01-17 04:53] VITALS: BP 125/86
[2019-01-17 07:00] LABS: BASOPHILS 0.1 % (0-2); EOSINOPHILS 2.2 % (0-7); HEMATOCRIT 37.2 % (36.0-48.0); HEMOGLOBIN 12.5 g/dL (12-16); IMMATURE GRANULOCYTES 0.1 % (0-5); LYMPHOCYTES 25.8 % (15-50); MCH 29.6 pg (26.0-34.0); MCHC 33.6 g/dL (31.0-37.0); MCV 87.9 fL (80.0-100.0); MEAN PLATELET VOLUME 9.2 fL (7.4-10.4); MONOCYTES 8.6 % (2-11); NEUTROPHILS 63.2 % (40-80); PLATELET COUNT 255 10x3/uL (130-400); RBC 4.23 10x6/uL (4.00-5.40); RDW 12.9 % (11.5-14.5); WBC 7.1 10x3/uL (4.8-10.8)
[2019-01-17 07:16] LABS: APTT 26.2 SECONDS (22.8-39.4); INR 0.9 (0.85-1.17); PROTIME 11.7 SECONDS (11.6-15.0)
[2019-01-17 07:21] LABS: ALKALINE PHOSPHATASE 81 U/L (46-116); ALT (SGPT) 25 U/L (10-68); CALCIUM 8.5 mg/dL (8.5-10.1); CARBON DIOXIDE 26.6 mmol/L (21.0-32.0); CHLORIDE - SERUM 102 mmol/L (98-107); CREATININE - SERUM 0.7 mg/dL (0.6-1.3); MAGNESIUM - SERUM 1.8 mg/dL (1.8-2.4); PHOSPHOROUS 3.6 mg/dL (2.5-4.9); PROTEIN - SERUM 6.9 g/dL (6.4-8.2); SODIUM 138 mmol/L (136-145); UREA NITROGEN 19 mg/dL (7-18); eGFR NON AFRICAN AMERICAN > 90 mL/min (90-120)
[2019-01-17 07:23] LABS: CALC OSMOLALITY 281 mosm/kg (275-300); GLUCOSE 177 mg/dL (74-106); POTASSIUM - SERUM 3.6 mmol/L (3.5-5.1)
--- NOTE | 2019-01-17 08:00 | NUR ---
PT RESTING IN BED, SHIFT ASSESSMENT PERFORMED. VSS AND WNL. BRUISING NOTED TO GROIN AND GROIN IS VERY TENDER TO TOUCH. DENIES ANY OTHER NEEDS. CALL LIGHT WITHIN REACH, WILL CONT TO FOLLOW POC
[2019-01-17 09:02] VITALS: BP 133/75
--- NOTE | 2019-01-17 12:20 | NUR ---
PT RESTING IN BED, DENIES ANY NEEDS AT THIS TIME, WILL CONT TO FOLLOW POC
[2019-01-17 13:13] VITALS: Ht 170.2 cm; Wt 72.6 kg
[2019-01-17 16:55] VITALS: BP 129/73
--- NOTE | 2019-01-17 18:08 | NUR ---
PIV TO LEFT FA INFILTRATED, PIV REMOVED WITH CATHETER TIP INTACT. 20G PIV INSERTED X1 ATTEMPT TO RIGHT AC. PT TOLERATED WELL. DENIES ANY NEEDS AT THIS TIME, WILL CONT TO FOLLOW POC
--- NOTE | 2019-01-17 19:36 | MORECARE ---
CASE MANAGEMENT DISCHARGE SUMMARY PATIENT: YESSENIA ARELLANO UNIT: [id number] ADM DATE: 01/16/19 AGE: 53 : 63 SEX: F ROOM/BED: D.1209 AUTHOR: MIKE,DOC PHYSICIAN: REFERRING PHYSICIAN: IRMA HANCOCK MD DATE OF SERVICE: 01/17/19 Discharge Plan Patient Name: YESSENIA ARELLANO Facility: [facility]:[place] : 1965 Planned Disposition: Home Anticipated Discharge Date: Discharge Date: Expected LOS: Initial Reviewer: [email or web address] Initial Review Date: 01/17/2019 Generated: 01/17/19 8:36 pm Comments DCP- Discharge Planning Updated by [email or web address]: Lien Muse on 01/17/19 6:[address] Patient Name: YESSENIA ARELLANO Admission Status: ER Accout number: [id number] Admission Date: 01-16-2019 : 1965 Admission Diagnosis: Attending: IRMA HANCOCK Current LOS: 1 Anticipated DC Date: Planned Disposition: Primary Insurance: [place] [employer] [place] Discharge Planning Comments: CM met with patient to complete initial dc planning assessment. CM educated patient on the CM role and verbal consent given by patient to complete assessment. Patient lives at home with her grandchildren ages 17, & 15 where she is independent with her care. At discharge patient plans to return home and feels this is a safe discharge. CM discussed availability of home health, rehab services, and medical equipment. Patient denied known discharge needs at this time. CM will continue to follow and will assist as needed with dc plans/needs. Kickboxing Instructor: Lien Muse DCPIA - Discharge Planning Initial Assessment Updated by [email or web address]: Lien Muse on 01/17/19 7:31 pm * Is the patient Alert and Oriented? Yes * How many steps to enter\exit or inside your home? 14 * PCP NO PCP * Pharmacy [facility] * Preadmission Environment Home with Family * ADLs Independent * Equipment None * List name and contact numbers for known caregivers / representatives who currently or will assist patient after discharge: JEMIMA BAILEY [phone] * Verbal permission to speak to the caregivers and representatives has been obtained from the patient. N/A * Community resources currently utilized None * Additional services required to return to the preadmission environment? No * Can the patient safely return to the preadmission environment? Yes * Has this patient been hospitalized within the prior 30 days at any hospital? No Patient Name: YESSENIA ARELLANO Page [id number] at 1936 All edits/amendments must be made on the electronic document DICTATION DATE: 01/17/191935 GATEMAN: SHARON 01/17/191935 RPT#: [id number] DC DATE: STATUS: ADM IN [facility] [address] [place] [address] END OF REPORT
[2019-01-17 20:06] VITALS: BP 144/78
[2019-01-18 00:49] VITALS: BP 84/47
[2019-01-18 04:48] VITALS: BP 124/81
[2019-01-18 07:22] LABS: BASOPHILS 0 % (0-2); EOSINOPHILS 1.7 % (0-7); HEMATOCRIT 35.3 % (36.0-48.0); HEMOGLOBIN 11.3 g/dL (12-16); IMMATURE GRANULOCYTES 0.1 % (0-5); LYMPHOCYTES 29.4 % (15-50); MCH 29.5 pg (26.0-34.0); MEAN PLATELET VOLUME 9.5 fL (7.4-10.4); MONOCYTES 7.7 % (2-11); NEUTROPHILS 61.1 % (40-80); PLATELET COUNT 290 10x3/uL (130-400); RBC 3.83 10x6/uL (4.00-5.40); RDW 12.8 % (11.5-14.5); WBC 7.1 10x3/uL (4.8-10.8)
[2019-01-18 07:24] LABS: MCV 92.2 fL (80.0-100.0)
[2019-01-18 07:48] LABS: CALC OSMOLALITY 286 mosm/kg (275-300); CALCIUM 8.2 mg/dL (8.5-10.1); CHLORIDE - SERUM 106 mmol/L (98-107); CREATININE - SERUM 0.7 mg/dL (0.6-1.3); GLUCOSE 224 mg/dL (74-106); PHOSPHOROUS 3.2 mg/dL (2.5-4.9); POTASSIUM - SERUM 4.3 mmol/L (3.5-5.1); SODIUM 140 mmol/L (136-145); UREA NITROGEN 14 mg/dL (7-18); eGFR NON AFRICAN AMERICAN > 90 mL/min (90-120)
[2019-01-18 08:44] VITALS: BP 94/60
--- NOTE | 2019-01-18 11:38 | NUR ---
DISCHARGE INSTRUCTIONS REVIEWED WITH PT AND ALL QUESTIONS ANSWERED. PIV REMOVED WITH CATHETER TIP INTACT. TELEMETRY REMOVED AND GIVEN TO FRAN PATIENT CARE SECRETARY. PT ASSISTED TO FRONT OF HOSPITAL VIA WHEELCHAIR WHERE SHE LEFT VIA TAXI
--- NOTE | 2019-01-19 15:47 | MORECARE ---
CASE MANAGEMENT DISCHARGE SUMMARY PATIENT: YESSENIA ARELLANO UNIT: [id number] ADM DATE: 01/16/19 AGE: 53 : 63 SEX: F ROOM/BED: D.1209 AUTHOR: MIKE,DOC PHYSICIAN: REFERRING PHYSICIAN: IRMA HANCOCK MD DATE OF SERVICE: 01/19/19 Discharge Plan Patient Name: YESSENIA ARELLANO Facility: [facility]:[place] : 1965 Planned Disposition: Home Anticipated Discharge Date: Discharge Date: 01/18/2019 Expected LOS: Initial Reviewer: [email or web address] Initial Review Date: 01/17/2019 Generated: 01/19/19 4:47 pm Comments DCP- Discharge Planning Updated by [email or web address]: Lien Muse on 01/17/19 6:[address] Patient Name: YESSENIA ARELLANO Admission Status: ER Accout number: [id number] Admission Date: 01-16-2019 : 1965 Admission Diagnosis: Attending: IRMA HANCOCK Current LOS: 1 Anticipated DC Date: Planned Disposition: Primary Insurance: [place] [employer] [place] Discharge Planning Comments: CM met with patient to complete initial dc planning assessment. CM educated patient on the CM role and verbal consent given by patient to complete assessment. Patient lives at home with her grandchildren ages 17, & 15 where she is independent with her care. At discharge patient plans to return home and feels this is a safe discharge. CM discussed availability of home health, rehab services, and medical equipment. Patient denied known discharge needs at this time. CM will continue to follow and will assist as needed with dc plans/needs. Vibratory Pile Driver: Lien Muse DCPIA - Discharge Planning Initial Assessment Updated by [email or web address]: Lien Muse on 01/17/19 7:31 pm * Is the patient Alert and Oriented? Yes * How many steps to enter\exit or inside your home? 14 * PCP NO PCP * Pharmacy [facility] * Preadmission Environment Home with Family * ADLs Independent * Equipment None * List name and contact numbers for known caregivers / representatives who currently or will assist patient after discharge: JEMIMA BAILEY [phone] * Verbal permission to speak to the caregivers and representatives has been obtained from the patient. N/A * Community resources currently utilized None * Additional services required to return to the preadmission environment? No * Can the patient safely return to the preadmission environment? Yes * Has this patient been hospitalized within the prior 30 days at any hospital? No Last DP export: 01/17/19 6:36 p Patient Name: YESSENIA ARELLANO Page [id number] at 1547 All edits/amendments must be made on the electronic document DICTATION DATE: 01/19/19 1547 SUPERVISOR REACTOR FUELING: SHARON 01/19/19 1547 RPT#: [id number] DC DATE:01/18/19 STATUS: DIS IN [facility] [address] [place] [address] END OF REPORT
== END 2019-01-18 11:41 | disposition home or self-care (01) | DRG 920 ==
LOC: D.ER 15:45 → D.M3 19:28
PROVIDERS: Family Medicine; ADMIT Internal Medicine Nephrology; ATTEND Internal Medicine Nephrology
DX: L76.32 Postprocedural hematoma of skin and subcutaneous tissue following other procedure (principal); N17.9 Acute kidney failure, unspecified; F17.213 Nicotine dependence, cigarettes, with withdrawal; E11.65 Type 2 diabetes mellitus with hyperglycemia; I10 Essential (primary) hypertension; I25.10 Atherosclerotic heart disease of native coronary artery without angina pectoris; J44.9 Chronic obstructive pulmonary disease, unspecified

== ENCOUNTER 2019-01-26 05:36 | Emergency (ER) | payer MEDICAID ==
[~2019-01-26] VITALS: Ht 170.2 cm; Wt 72.7 kg
[2019-01-26 05:40] VITALS: Ht 170.2 cm; Wt 72.7 kg
[2019-01-26 06:31] LABS: BASOPHILS 0.1 % (0-2); EOSINOPHILS 2.1 % (0-7); HEMATOCRIT 37.3 % (36.0-48.0); HEMOGLOBIN 12.4 g/dL (12-16); IMMATURE GRANULOCYTES 0.2 % (0-5); LYMPHOCYTES 21.5 % (15-50); MCH 29.9 pg (26.0-34.0); MCHC 33.2 g/dL (31.0-37.0); MCV 89.9 fL (80.0-100.0); MEAN PLATELET VOLUME 8.7 fL (7.4-10.4); MONOCYTES 8.3 % (2-11); NEUTROPHILS 67.8 % (40-80); RBC 4.15 10x6/uL (4.00-5.40); WBC 9.9 10x3/uL (4.8-10.8)
[2019-01-26 06:43] LABS: ALBUMIN 3.6 g/dL (3.4-5.0); ALKALINE PHOSPHATASE 83 U/L (46-116); ALT (SGPT) 30 U/L (10-68); BILIRUBIN - TOTAL 0.85 mg/dL (0.2-1.3); CALC OSMOLALITY 276 mosm/kg (275-300); CALCIUM 9.6 mg/dL (8.5-10.1); CARBON DIOXIDE 25.4 mmol/L (21.0-32.0); CHLORIDE - SERUM 99 mmol/L (98-107); CREATININE - SERUM 0.7 mg/dL (0.6-1.3); GLUCOSE 165 mg/dL (74-106); MAGNESIUM - SERUM 1.7 mg/dL (1.8-2.4); PLATELET COUNT 356 10x3/uL (130-400); POTASSIUM - SERUM 3.4 mmol/L (3.5-5.1); PROTEIN - SERUM 7.4 g/dL (6.4-8.2); SODIUM 135 mmol/L (136-145); UREA NITROGEN 20 mg/dL (7-18); eGFR NON AFRICAN AMERICAN > 90 mL/min (90-120)
[2019-01-26 07:40] VITALS: BP 136/92
== END 2019-01-26 07:40 | disposition home or self-care (01) ==
LOC: D.ER 05:36
PROVIDERS: Emergency Medicine
DX: R06.00 Dyspnea, unspecified (principal); R53.1 Weakness

== ENCOUNTER 2019-02-04 18:38 | Emergency (ER) | payer MEDICAID ==
[~2019-02-04] VITALS: Ht 162.6 cm; Wt 72.7 kg
[2019-02-04 18:45] VITALS: Ht 162.6 cm; Wt 72.7 kg
[2019-02-04 19:19] LABS: BASOPHILS 0.3 % (0-2); EOSINOPHILS 2.6 % (0-7); HEMATOCRIT 40.5 % (36.0-48.0); HEMOGLOBIN 13.7 g/dL (12-16); IMMATURE GRANULOCYTES 0.1 % (0-5); LYMPHOCYTES 37.3 % (15-50); MCH 29.8 pg (26.0-34.0); MCHC 33.8 g/dL (31.0-37.0); MEAN PLATELET VOLUME 8.8 fL (7.4-10.4); MONOCYTES 5.1 % (2-11); NEUTROPHILS 54.6 % (40-80); RDW 12.5 % (11.5-14.5); WBC 8.9 10x3/uL (4.8-10.8)
[2019-02-04 19:20] LABS: PLATELET COUNT 280 10x3/uL (130-400)
[2019-02-04 19:28] LABS: INR 0.94 (0.85-1.17); PROTIME 12.1 SECONDS (11.6-15.0)
[2019-02-04 19:29] LABS: D-DIMER-QUANTITATIVE 0.66 ug/mLFEU (0.20-0.54)
[2019-02-04 19:34] LABS: ALBUMIN 3.8 g/dL (3.4-5.0); ALKALINE PHOSPHATASE 87 U/L (46-116); ALT (SGPT) 28 U/L (10-68); BILIRUBIN - TOTAL 0.35 mg/dL (0.2-1.3); CALC OSMOLALITY 283 mosm/kg (275-300); CARBON DIOXIDE 24.9 mmol/L (21.0-32.0); CHLORIDE - SERUM 103 mmol/L (98-107); CREATININE - SERUM 0.8 mg/dL (0.6-1.3); GLUCOSE 146 mg/dL (74-106); POTASSIUM - SERUM 3.8 mmol/L (3.5-5.1); PROTEIN - SERUM 7.2 g/dL (6.4-8.2); SODIUM 139 mmol/L (136-145); UREA NITROGEN 20 mg/dL (7-18); eGFR NON AFRICAN AMERICAN 79 mL/min (90-120)
[2019-02-04 19:53] LABS: CKMB 1.6 U/L (0.0-3.6); CREATINE KINASE 88 UL (21-215); MAGNESIUM - SERUM 1.6 mg/dL (1.8-2.4)
[2019-02-04 19:58] LABS: TROPONIN-I < 0.017 ng/mL (0.000-0.060)
[2019-02-04] MEDS ORDERED: NAPROSYN500 MG PO (21:03)
[2019-02-04 21:24] VITALS: BP 124/61
== END 2019-02-04 21:24 | disposition home or self-care (01) ==
LOC: D.ER 18:38
PROVIDERS: Emergency Medicine
DX: R09.1 Pleurisy (principal); I25.10 Atherosclerotic heart disease of native coronary artery without angina pectoris; F17.200 Nicotine dependence, unspecified, uncomplicated; E11.9 Type 2 diabetes mellitus without complications; I10 Essential (primary) hypertension; J44.9 Chronic obstructive pulmonary disease, unspecified

== ENCOUNTER 2019-03-07 09:58 | Emergency (ER) | payer MEDICAID ==
[~2019-03-07] VITALS: Ht 162.6 cm; Wt 72.7 kg
[~2019-03-07 09:58] MED LIST changes: +NAPROSYN500 MG PO
[2019-03-07 10:04] VITALS: Ht 162.6 cm; Wt 72.7 kg
[2019-03-07 10:34] LABS: CALC OSMOLALITY 281 mosm/kg (275-300); CALCIUM 9.4 mg/dL (8.5-10.1); CARBON DIOXIDE 24.4 mmol/L (21.0-32.0); CHLORIDE - SERUM 102 mmol/L (98-107); CREATININE - SERUM 0.9 mg/dL (0.6-1.3); SODIUM 136 mmol/L (136-145); UREA NITROGEN 17 mg/dL (7-18); eGFR NON AFRICAN AMERICAN 69 mL/min (90-120)
[2019-03-07 10:35] LABS: GLUCOSE 245 mg/dL (74-106)
[2019-03-07 10:36] LABS: BASOPHILS 0.3 % (0-2); EOSINOPHILS 1.3 % (0-7); HEMATOCRIT 41.8 % (36.0-48.0); HEMOGLOBIN 14.1 g/dL (12-16); IMMATURE GRANULOCYTES 0.3 % (0-5); LYMPHOCYTES 26.9 % (15-50); MCH 30.3 pg (26.0-34.0); MCHC 33.7 g/dL (31.0-37.0); MCV 89.7 fL (80.0-100.0); MONOCYTES 5.1 % (2-11); NEUTROPHILS 66.1 % (40-80); PLATELET COUNT 277 10x3/uL (130-400); RBC 4.66 10x6/uL (4.00-5.40); RDW 13.3 % (11.5-14.5); WBC 7.9 10x3/uL (4.8-10.8)
[2019-03-07 10:41] LABS: APTT 27.2 SECONDS (22.8-39.4); INR 0.86 (0.85-1.17)
[2019-03-07 10:53] LABS: ALBUMIN 3.5 g/dL (3.4-5.0); ALKALINE PHOSPHATASE 80 U/L (46-116); ALT (SGPT) 34 U/L (10-68); BILIRUBIN - TOTAL 0.29 mg/dL (0.2-1.3); CKMB 1.4 U/L (0.0-3.6); CREATINE KINASE 104 UL (21-215); PRO BNP 131 pg/mL (0-125); PROTEIN - SERUM 6.9 g/dL (6.4-8.2); TROPONIN-I < 0.017 ng/mL (0.000-0.060)
[2019-03-07] MEDS ORDERED: FLUTICASONE PRO16 GM NASAL (12:21)
[2019-03-07] MEDS ORDERED: GUAIFEN-CODEINE10 ML PO (12:21)
[2019-03-07] MEDS ORDERED: AUGMENTIN 875-11 TAB PO (12:21)
[2019-03-07 12:32] VITALS: BP 128/88
[2019-03-07 12:33] LABS: PROTIME 11.3 SECONDS (11.6-15.0)
== END 2019-03-07 12:44 | disposition home or self-care (01) ==
LOC: D.ER 09:58
PROVIDERS: Family Medicine
DX: J01.90 Acute sinusitis, unspecified (principal); R07.89 Other chest pain; R05 Cough; R06.00 Dyspnea, unspecified; E11.9 Type 2 diabetes mellitus without complications; Z79.84 Long term (current) use of oral hypoglycemic drugs; I10 Essential (primary) hypertension; Z72.0 Tobacco use; M19.90 Unspecified osteoarthritis, unspecified site; Z90.5 Acquired absence of kidney; J44.9 Chronic obstructive pulmonary disease, unspecified

== ENCOUNTER 2019-03-31 14:49 | Emergency (ER) | payer MEDICAID ==
[~2019-03-31] VITALS: Ht 162.6 cm; Wt 68.6 kg
[~2019-03-31 14:49] MED LIST changes: +AUGMENTIN 875-11 TAB PO; +FLUTICASONE PRO16 GM NASAL; +GUAIFEN-CODEINE10 ML PO
[2019-03-31 14:52] VITALS: Ht 162.6 cm; Wt 68.6 kg
[2019-03-31 15:20] LABS: BASOPHILS 0.1 % (0-2); EOSINOPHILS 1.8 % (0-7); IMMATURE GRANULOCYTES 0.1 % (0-5); LYMPHOCYTES 23.1 % (15-50); MCHC 33.3 g/dL (31.0-37.0); MCV 90.1 fL (80.0-100.0); MEAN PLATELET VOLUME 8.7 fL (7.4-10.4); MONOCYTES 4.4 % (2-11); NEUTROPHILS 70.5 % (40-80); PLATELET COUNT 264 10x3/uL (130-400); RBC 4.66 10x6/uL (4.00-5.40); RDW 13.1 % (11.5-14.5); WBC 7.9 10x3/uL (4.8-10.8)
[2019-03-31 15:28] LABS: INR 0.92 (0.85-1.17); PROTIME 11.9 SECONDS (11.6-15.0)
[2019-03-31 15:29] LABS: APTT 29.2 SECONDS (22.8-39.4)
[2019-03-31 15:44] LABS: CALC OSMOLALITY 282 mosm/kg (275-300); CARBON DIOXIDE 25.9 mmol/L (21.0-32.0); CHLORIDE - SERUM 106 mmol/L (98-107); CREATININE - SERUM 0.7 mg/dL (0.6-1.3); GLUCOSE 206 mg/dL (74-106); SODIUM 140 mmol/L (136-145); UREA NITROGEN 7 mg/dL (7-18); eGFR NON AFRICAN AMERICAN > 90 mL/min (90-120)
[2019-03-31 15:54] LABS: ALBUMIN 3.2 g/dL (3.4-5.0); ALKALINE PHOSPHATASE 85 U/L (46-116); ALT (SGPT) 25 U/L (10-68); CKMB 0.8 U/L (0.0-3.6); CREATINE KINASE 31 UL (21-215); MAGNESIUM - SERUM 1.9 mg/dL (1.8-2.4); PROTEIN - SERUM 6.6 g/dL (6.4-8.2)
[2019-03-31 15:58] LABS: TROPONIN-I < 0.017 ng/mL (0.000-0.060)
[2019-03-31 17:30] VITALS: BP 155/89
== END 2019-03-31 17:32 | disposition home or self-care (01) ==
LOC: D.ER 14:49
PROVIDERS: Emergency Medicine
DX: R07.9 Chest pain, unspecified (principal); Z95.5 Presence of coronary angioplasty implant and graft; I10 Essential (primary) hypertension; E11.9 Type 2 diabetes mellitus without complications; Z79.84 Long term (current) use of oral hypoglycemic drugs; J44.9 Chronic obstructive pulmonary disease, unspecified; F17.210 Nicotine dependence, cigarettes, uncomplicated; S80.00XD Contusion of unspecified knee, subsequent encounter; S29.012D Strain of muscle and tendon of back wall of thorax, subsequent encounter; X58.XXXD Exposure to other specified factors, subsequent encounter